=== PATIENT | female | born 1990 ===

== ENCOUNTER 2016-10-22 18:41 | Emergency (ER) | payer SELFPAY ==
[2016-10-22 19:05] VITALS: BP 114/80
[2016-10-22 19:27] LABS: Basophils % (Auto) 0.9 % (0.0-1.8); Eosinophils % (Auto) 1.6 % (0.0-4.3); Hematocrit 35.8 % (30.3-42.9); Hemoglobin 11.8 gm/dl (10.1-14.3); Mean Corpuscular HGB Conc 33 % (30-34); Mean Corpuscular Hemoglobin 29 pg (28-32); Mean Corpuscular Volume 89 fl (79-97); Platelet Count 216 K/mm3 (140-440); Red Blood Count 4.03 M/mm3 (3.65-5.03); Red Cell Distribution Width 13.5 % (13.2-15.2); White Blood Count 11.7 K/mm3 (4.5-11.0)
[2016-10-22 19:44] LABS: Alanine Aminotransferase 11 units/L (7-56); Albumin 4.2 g/dL (3.9-5); Albumin/Globulin Ratio 1.3 %; Alkaline Phosphatase 72 units/L (35-129); Anion Gap 18 mmol/L; BUN/Creatinine Ratio 16.66; Blood Urea Nitrogen 10 mg/dL (7-17); Carbon Dioxide 22 mmol/L (22-30); Chloride 101.9 mmol/L (98-107); Glucose 77 mg/dL (65-100); Lipase 33 units/L (13-60); Potassium 3.9 mmol/L (3.6-5.0); Sodium 138 mmol/L (137-145); Total Protein 7.5 g/dL (6.3-8.2)
[2016-10-22 20:19] LABS: Bilirubin,Urine NEG (Negative); Blood,Urine NEG (Negative); Ketones,Urine NEG (Negative); Leukocyte Esterase,Urine SM (Negative); Mucus,Urine FEW /HPF; Nitrite,Urine NEG (Negative); Protein,Urine <15 mg/dL mg/dL (Negative); Urobilinogen,Urine < 2.0 mg/dL (<2.0)
--- NOTE | 2016-10-27 13:42 | ED Elopement Review ---
ED Pt Elopement review - Results review Lab results: Laboratory Tests 10/22/16 10/22/16 10/22/16 19:08 19:08 19:08 WBC 11.7 H RBC 4.03 Hgb 11.8 Hct 35.8 MCV 89 MCH 29 MCHC 33 RDW 13.5 Plt Count 216 Lymph % (Auto) 30.3 [place] % (Auto) 6.4 Eos % (Auto) 1.6 Baso % (Auto) 0.9 Lymph # 3.5 [place] # 0.7 Eos # 0.2 Baso # 0.1 Seg Neutrophils % 60.8 Seg Neutrophils # 7.1 Sodium 138 Potassium 3.9 Chloride 101.9 Carbon Dioxide 22 Anion Gap 18 BUN 10 Creatinine 0.6 L Estimated GFR > 60 BUN/Creatinine Ratio 16.66 Glucose 77 Calcium 9.0 Total Bilirubin 0.20 AST 17 ALT 11 Alkaline Phosphatase 72 Total Protein 7.5 Albumin 4.2 Albumin/Globulin Ratio 1.3 Lipase 33 HCG, Qual Positive HCG, Quant Urine Color Urine Turbidity Urine pH Ur Specific [place] Urine Protein Urine Glucose (UA) Urine Ketones Urine Blood Urine Nitrite Urine Bilirubin Urine Urobilinogen Ur Leukocyte Esterase Urine WBC (Auto) Urine RBC (Auto) U Epithel Cells (Auto) Urine Mucus 10/22/16 10/22/16 19:08 20:00 WBC RBC Hgb Hct MCV MCH MCHC RDW Plt Count Lymph % (Auto) [place] % (Auto) Eos % (Auto) Baso % (Auto) Lymph # [place] # Eos # Baso # Seg Neutrophils % Seg Neutrophils # Sodium Potassium Chloride Carbon Dioxide Anion Gap BUN Creatinine Estimated GFR BUN/Creatinine Ratio Glucose Calcium Total Bilirubin AST ALT Alkaline Phosphatase Total Protein Albumin Albumin/Globulin Ratio Lipase HCG, Qual HCG, Quant 24.22 H Urine Color Yellow Urine Turbidity Clear Urine pH 6.0 Ur Specific [place] 1.018 Urine Protein <15 mg/dl Urine Glucose (UA) Neg Urine Ketones Neg Urine Blood Neg Urine Nitrite Neg Urine Bilirubin Neg Urine Urobilinogen < 2.0 Ur Leukocyte Esterase Sm Urine WBC (Auto) 2.0 Urine RBC (Auto) 3.0 U Epithel Cells (Auto) 4.0 Urine Mucus Few - Call Back decision Pt Call Back Decision: Pt to F/U with PMD (possible )
== END 2016-10-23 01:45 | disposition left against medical advice (07) ==
LOC: ED 18:41
DX: R42 Dizziness and giddiness (principal); Z53.21 Procedure and treatment not carried out due to patient leaving prior to being seen by health care provider
CPT/HCPCS: 36415; 80053; 81001; 83690; 84702; 84703; 85025